=== PATIENT | female | born 1965 | race Caucasian/White ===

== ENCOUNTER 2018-07-31 14:39 | Emergency (ER) | payer OTHER ==
[2018-07-31] MEDS: morphine 4 MG/ML VIAL IV ×2 (15:17→16:34)
[2018-07-31] MEDS: ONDANSETRON 4 MG INJ IV (15:17)
[2018-07-31] MEDS: SOD CHLORIDE 0.9% 1,000 ML IV (15:17)
[2018-07-31 15:26] LABS: ADD MAN DIFF? NO
[2018-07-31 15:29] LABS: WHITE BLOOD COUNT 6.1 10^3/ul (4.8-10.8)
[2018-07-31 15:29] LABS: BASOPHILS % 0.7 % (0.0-2.0); EOSINOPHILS # 0.1 10^3/ul (0.0-0.5); EOSINOPHILS % 1.1 % (0.0-7.0); HEMATOCRIT 41.2 % (37.0-47.0); HEMOGLOBIN 14.1 g/dl (12.0-16.0); LYMPHOCYTES # 2.2 10^3/ul (0.8-2.9); LYMPHOCYTES % 36.7 % (15.0-51.0); MEAN CORPUSCULAR HEMOGLOBIN 32.7 pg (29.0-33.0); MEAN CORPUSCULAR HGB CONC 34.2 g/dl (32.0-37.0); MEAN CORPUSCULAR VOLUME 95.6 fl (82.0-101.0); MEAN PLATELET VOLUME 10.2 fl (7.4-10.4); MONOCYTE # 0.6 10^3/ul (0.3-0.9); MONOCYTES % 9.3 % (0.0-11.0); NEUTROPHIL # 3.2 10^3/ul (1.6-7.5); PLATELET COUNT 276 10^3/UL (140-415); RED BLOOD COUNT 4.31 10^6/ul (4.20-5.40); RED CELL DISTRIBUTION WIDTH 12.5 % (11.5-14.5)
[2018-07-31] MEDS: LIDOCAINE/MYLANTA 40 ML BTL PO (15:43)
[2018-07-31 16:03] LABS: ALANINE AMINOTRANSFERASE 287 IU/L (13-69); ALBUMIN 4.9 g/dl (3.3-4.9); ALBUMIN/GLOBULIN RATIO 1.28; ALKALINE PHOSPHATASE 165 IU/L (42-121); ANION GAP 16 (8-16); ASPARTATE AMINO TRANSFERASE 341 IU/L (15-46); BILIRUBIN,INDIRECT 0.9 mg/dl (0-1.1); BILIRUBIN,TOTAL 0.9 mg/dl (0.2-1.3); BLOOD UREA NITROGEN 8 mg/dl (7-20); CALCIUM 10.2 mg/dl (8.4-10.2); CARBON DIOXIDE 25 mmol/L (21-31); CHLORIDE 104 mmol/L (97-110); CREATININE 0.88 mg/dl (0.44-1.00); GLUCOSE 105 mg/dl (70-220); LIPASE 44 U/L (23-300); POTASSIUM 3.9 mmol/L (3.5-5.1); SODIUM 141 mmol/L (135-144); TOTAL PROTEIN 8.7 g/dl (6.1-8.1)
[2018-07-31 17:41] LABS: ADD UMIC YES; UR ASCORBIC ACID NEGATIVE (NEGATIVE); UR BACTERIA FEW /HPF (NONE SEEN); UR BILIRUBIN (Dip) NEGATIVE (NEGATIVE); UR BLOOD (Dip) 2+ mg/dL (NEGATIVE); UR CLARITY CLEAR (CLEAR); UR COLOR STRAW (YELLOW); UR GLUCOSE (Dip) NEGATIVE (NEGATIVE); UR KETONES (Dip) NEGATIVE (NEGATIVE); UR LEUKOCYTE ESTERASE (Dip) TRACE Leu/ul (NEGATIVE); UR NITRITE (Dip) NEGATIVE (NEGATIVE); UR RBC 14 /HPF (0-5); UR SPECIFIC GRAVITY (Dip) 1.006 (1.003-1.030); UR TOTAL PROTEIN (Dip) NEGATIVE (NEGATIVE); UR UROBILINOGEN (Dip) 1+ mg/dL (NEGATIVE); UR WBC 7 /HPF (0-5)
[2018-07-31] MEDS: ONDANSETRON (ODT) 4 MG TAB ODT (18:09)
[2018-07-31] MEDS ORDERED: LORAZEPAM 2 MG INJ (18:40)
[2018-07-31] MEDS: LORAZEPAM 2 MG INJ IM (18:57)
== END 2018-07-31 19:37 | disposition home or self-care (01) ==
LOC: E/R 19:37
DX: R10.13 Epigastric pain (principal); R11.2 Nausea with vomiting, unspecified; J45.909 Unspecified asthma, uncomplicated
CPT/HCPCS: 36415; 76705; 80053; 81001; 83690; 85025; 96372; 96374; 96375; 96376; 99285-25